=== PATIENT | male | born 1985 | race Caucasian/White ===

== ENCOUNTER → 2021-04-05 11:00 | Outpatient (BNVA) | payer OTHER, SELFPAY | PROVIDERS: Visit Provider Internal Medicine | DX: M75.41 Impingement syndrome of right shoulder (principal) | CPT/HCPCS: 73030; 99203 ==

== ENCOUNTER → 2021-04-12 12:53 | Outpatient (BNVA) | payer OTHER, SELFPAY | PROVIDERS: Visit Provider Internal Medicine | DX: M25.811 Other specified joint disorders, right shoulder (principal) | CPT/HCPCS: 99213 ==

== ENCOUNTER → 2021-04-22 07:55 | Outpatient (BNVA) | payer OTHER, SELFPAY | PROVIDERS: Visit Provider Internal Medicine | DX: M25.811 Other specified joint disorders, right shoulder (principal) | CPT/HCPCS: 99213 ==